=== PATIENT | female | born 1940 | race Caucasian/White ===

== ENCOUNTER → 2018-02-13 10:16 | Outpatient (CLI) | payer MEDICARE, SELFPAY ==
--- NOTE | 2018-02-13 | DI.MG.S_ITS ---
BILATERAL DIGITAL SCREENING MAMMOGRAM 3D/2D WITH CAD: 02/13/2018 CLINICAL: Routine screening. Comparison is made to exams dated: 01/11/2016 mammogram, 09/29/2014 mammogram, and 06/03/2013 mammogram - [facility]. The tissue of both breasts is heterogeneously dense. This may lower the sensitivity of mammography. Current study was also evaluated with a Computer Aided Detection (CAD) system. No significant masses, calcifications, or other findings are seen in either breast. There has been no significant interval change. IMPRESSION: NEGATIVE There is no mammographic evidence of malignancy. A 1 year screening mammogram is recommended. This exam was interpreted at Station ID: [id number]. NOTE: For mammograms, a report in lay terms will be sent to the patient. Approximately 15% of breast malignancies will not be visualized mammographically. In the management of a palpable breast mass, a negative mammogram must not discourage biopsy of a clinically suspicious lesion. Electronically Signed By: Rosario chaudhry/tomás:02/13/2018 10:46:26 letter sent: Normal Exam ACR BI-RADS Category 1: Negative 3341F
== END ==
PROVIDERS: PCP Internal Medicine; Visit Provider Internal Medicine
DX: Z12.31 Encounter for screening mammogram for malignant neoplasm of breast (principal)
CPT/HCPCS: 77063; 77067

== ENCOUNTER → 2018-05-09 14:59 | Outpatient (CLI) | payer MEDICARE, SELFPAY ==
--- NOTE | 2018-05-09 | DI.RAD.S_ITS ---
PROCEDURE: XR WRIST RT MIN 3V INDICATIONS: pain in right wrist after fall yesterday TECHNIQUE: 4 views of the wrist were acquired. COMPARISON: None. FINDINGS: Bones: No fractures or dislocations, but there is moderately severe degenerative change at the base of the first metacarpal and to a lesser degree at the interface between the distal scaphoid and the base of the trapezium. No suspicious bony lesions. Scaphoid view: No trauma to the scaphoid is found. Soft tissues: No suspicious soft tissue calcifications. IMPRESSION: No fracture or traumatic subluxation is seen but there is moderately severe degenerative osteoarthritic change at the base of the first metacarpal as it articulates against the trapezium and at the scaphoid-trapezium articulation. Dictated by: Wallace Olsen M.D. on 05/09/2018 at 16:27 Approved by: Wallace Olsen M.D. on 05/09/2018 at 16:28
== END ==
PROVIDERS: PCP Physician Assistant; Visit Provider Internal Medicine
DX: M25.531 Pain in right wrist (principal)
CPT/HCPCS: 73110

== ENCOUNTER → 2018-05-22 13:04 | Outpatient (CLI) | payer MEDICARE, SELFPAY ==
--- NOTE | 2018-05-22 14:40 | DIET.PN ---
Met for initial nutrition consultation. Pt reports she has been on many different kinds of diets. In past, fasted an did cleansing diets for 5 days at time to control wt. Admits the wt came back. Has been on a vegan diet but couldn't keep it up. As she ages is finding it more and more difficult to lose wt, though did lose 2# in last 2 weeks by entirely cutting out sugar. Most recently has followed paleo/keto style diets. But not strictly. Isn't sure keto feels right. Usual intake includes 2 meals daily and a snack, though less snacking lately in effort to lose wt and with cutting out sugar. Eat all organic foods; lots of fresh produce, minimal processed foods. DX: overweight HT: 62 WT per pt: 137# HIGHEST WT: 141# BMI: 25 PHYSICAL ACTIVITY: Walks dog ([employer] feng) daily for 30-40 min, but doesn't walk fast; hikes 2-3 times weekly for 1-2 hr; yoga 2/wk ASSESSMENT: Elderly woman concerned with wt gain, especially in abdominal area. Is active and eats healthy diet w/few extras x last 2 weeks. Is mildly overweight, but mostly has probably lost muscle with aging. Appears to jump on board with latest fad diets. INTERVENTION: Provided education on wt loss w/aging and recommendations for physical activity. Current recs are to get 1 hour of moderate exercise daily after the age of 50yr to lose wt. Discussed decreasing metabolism with age and it's effect on wt control and the decreased need for energy nutrients (carbohydrates); excess fat. Discussed healthful fats and their metabolism. Provided ed on healthy plate model for portioning PLAN/GOAL: Increase exercise to 1 hour 5-6 times daily, moderate pace Continue to cut out sugar.
== END ==
PROVIDERS: PCP Physician Assistant; Visit Provider Physician Assistant
DX: E66.3 Overweight (principal)
CPT/HCPCS: 97802

== ENCOUNTER → 2019-03-19 09:21 | Outpatient (CLI) | payer MEDICARE, SELFPAY ==
--- NOTE | 2019-03-19 | DI.MG.S_ITS ---
BILATERAL DIGITAL SCREENING MAMMOGRAM 3D/2D WITH CAD: 03/19/2019 CLINICAL: Routine screening. Comparison is made to exams dated: 02/13/2018 mammogram, 01/11/2016 mammogram, and 09/29/2014 mammogram - [facility]. The tissue of both breasts is heterogeneously dense. This may lower the sensitivity of mammography. Current study was also evaluated with a Computer Aided Detection (CAD) system. No significant masses, calcifications, or other findings are seen in either breast. There has been no significant interval change. IMPRESSION: NEGATIVE There is no mammographic evidence of malignancy. A 1 year screening mammogram is recommended. This exam was interpreted at Station ID: [id number]. NOTE: For mammograms, a report in lay terms will be sent to the patient. Approximately 15% of breast malignancies will not be visualized mammographically. In the management of a palpable breast mass, a negative mammogram must not discourage biopsy of a clinically suspicious lesion. Electronically Signed By: Rosario chaudhry/tomás:03/19/2019 11:53:14 letter sent: Normal Exam ACR BI-RADS Category 1: Negative 3341F
== END ==
PROVIDERS: PCP Internal Medicine; Visit Provider Internal Medicine
DX: Z12.31 Encounter for screening mammogram for malignant neoplasm of breast (principal)
CPT/HCPCS: 77063; 77067

== ENCOUNTER → 2019-04-09 10:22 | Outpatient (CLI) | payer MEDICARE, SELFPAY ==
[2019-04-09 12:01] LABS: Alanine Aminotransferase 21 IU/L (9-52); Aspartate Aminotransferase 26 IU/L (14-36); Cholesterol 203 mg/dL (140-199); HDL Cholesterol 86 mg/dL (40-60); LDL Cholesterol Calculated 106 mg/dL (<100); Triglycerides 57 mg/dL (35-150)
== END ==
PROVIDERS: PCP Internal Medicine; Visit Provider Internal Medicine
DX: E78.00 Pure hypercholesterolemia, unspecified (principal)
CPT/HCPCS: 36415; 80061; 84450; 84460

== ENCOUNTER → 2019-08-06 14:45 | Outpatient (CLI) | payer MEDICARE, SELFPAY ==
--- NOTE | 2019-08-06 | DI.RAD.S_ITS ---
PROCEDURE: XR HAND LT MIN 3V INDICATIONS: LT HAND THIRD FINGER TECHNIQUE: 3 views of the hand(s) acquired. COMPARISON: None. FINDINGS: Bones: No fractures or dislocations. Carpal bones are normally aligned. No suspicious bony lesions. Diffuse carpal and interphalangeal joint degeneration. First CMC and triscaphe joint degeneration presumed cystic change projecting in the lunate. No marginal lucencies to suggest erosions. Soft tissues: No suspicious soft tissue calcifications. IMPRESSION: Diffuse left hand osteoarthritis. No definite marginal lucencies. Dictated by: Asael Dallas M.D. on 08/06/2019 at 17:12 Approved by: Asael Dallas M.D. on 08/06/2019 at 17:14
== END ==
PROVIDERS: PCP Internal Medicine; Visit Provider Internal Medicine
DX: M79.642 Pain in left hand (principal); M18.12 Unilateral primary osteoarthritis of first carpometacarpal joint, left hand; M19.042 Primary osteoarthritis, left hand
CPT/HCPCS: 73130

== ENCOUNTER → 2020-03-03 12:36 | Outpatient (CLI) | payer MEDICARE, SELFPAY ==
[2020-03-03 14:25] LABS: Alanine Aminotransferase 23 IU/L (<35); Aspartate Aminotransferase 32 IU/L (14-36); Cholesterol 190 mg/dL (140-199); HDL Cholesterol 70 mg/dL (40-60); LDL Cholesterol Calculated 87 mg/dL (<100); Triglycerides 166 mg/dL (35-150)
== END ==
PROVIDERS: PCP Internal Medicine; Referring Provider Internal Medicine; Visit Provider Internal Medicine
DX: E78.00 Pure hypercholesterolemia, unspecified (principal)
CPT/HCPCS: 36415; 80061; 84450; 84460

== ENCOUNTER → 2020-04-05 10:45 | Outpatient (CLI) | payer MEDICARE, SELFPAY ==
[2020-04-08 12:12] LABS: COVID19 Sendout Not Detected (Not Detected)
== END ==
PROVIDERS: PCP Internal Medicine; Visit Provider Physician Assistant
DX: Z01.818 Encounter for other preprocedural examination (principal)
CPT/HCPCS: 87635

== ENCOUNTER → 2020-04-08 09:51 | Outpatient (CLI) | payer MEDICARE, SELFPAY ==
[2020-04-08 10:59] LABS: COVID19 -Nasal RAPID Negative (Negative)
== END ==
PROVIDERS: PCP Internal Medicine; Visit Provider Physician Assistant
DX: Z01.812 Encounter for preprocedural laboratory examination (principal)
CPT/HCPCS: 87635

== ENCOUNTER 2020-04-08 10:29 | Day surgery (SDC) | payer MEDICARE, SELFPAY ==
--- NOTE | 2020-04-08 | PATH_ITS ---
[facility] Accession Number: [id number] . 01 Material submitted: . PART A: colon - COLON MASS AT 50CM 55CM PART B: colon - COLON POLYP AT 40CM . 02 Diagnosis: A. Colon, Mass at 50 cm, Biopsy: Multiple fragments of sessile serrated adenoma. . B. Colon, Polyp at 40 cm, Biopsy: Sessile serrated adenoma. MRV 04/09/2020 1410 Local . 02 Electronically signed: . Negin Berkowitz MD, Pathologist NPI- [id number] . 01 Gross description: . Part A: COLON MASS AT 50CM 55CM: Received in formalin are multiple fragment(s) of hayes, soft tissue measuring 2.5 x 0.7 x 0.3 cm in aggregate submitted entirely in 1 cassette(s) Part B: COLON POLYP AT 40CM: Received in formalin is 1 fragment(s) of hayes, soft tissue measuring 0.7 x 0.7 x 0.4 cm which is inked, trisected and submitted entirely in 1 cassette(s) /QBJ 04/09/2020 0201 Local . 02 Pathologist provided ICD-10: D12.6 . 02 CPT . 417002, 081697 Performed at: 01 [facility] [address], [place], [place] [id number] MD Kvng Vazquez MD Phone: [phone] Performed at: 02 [facility] [address] [place], [place] [id number] MD Negin Berkowitz MD Phone: [phone]
[2020-04-08 10:39] VITALS: BP 132/81; PULSE 102; RESP 16; TEMP 37.2; O2SAT 97; BMI 25.7
[2020-04-08] MEDS: SODIUM CHLORIDE 0.9% 1,000 ML 84 ML IV (10:39)
--- NOTE | 2020-04-08 12:32 | PM.HP.1 ---
History of Present Illness History of Present Illness Date Patient Seen: 04/08/20 Time Patient Seen: 12:32 Chief complaint: [id number] Narrative: Cologuard positive Patient History Medical History (Updated 09/03/19 @ 20:54 by Cindy Brian) Depression (Chronic ~1984) Herpes (Inactive ~1979) Substance abuse (Chronic ~1984) Surgical History (Updated 09/03/19 @ 20:54 by Cindy Brian) Anesthesia (Resolved) History of ankle surgery (Resolved ~1996) History of cataract removal with insertion of prosthetic lens (Resolved ~2005) Retinal detachment (Resolved ~2001) Family & Social History Family History (Updated 09/03/19 @ 20:56 by Cindy Brian) Father No problems noted. Mother History of heart disease COPD (chronic obstructive pulmonary disease) Grandfather No problems noted. Grandmother History of heart disease Social History: household members other Tobacco & Substance use: Smoking Status Never smoker alcohol intake never Substance Use Type does not use Meds Home Medications and Allergies Home Medications Medication Instructions Recorded Confirmed Type OMEGA-3 FATTY ACIDS (FISH OIL) 500 mg PO #0 06/14/16 History atorvastatin [Lipitor] 10 mg PO HS #30 tab 06/14/16 04/08/20 History cholecalciferol (vitamin D3) 1,000 unit PO QDAY #0 tab 06/14/16 04/08/20 History [Vitamin D3] Allergies Allergy/AdvReac Type Severity Reaction Status Date / Time amoxicillin [AMOXICILLIN] Allergy Unknown Verified 04/08/20 10:31 Exam Vital Signs (past 8 hours): - 04/08/20 10:39 Temperature 98.9 F Pulse Rate 102 H Respiratory Rate 16 Blood Pressure 132/81 Pulse Oximetry 97 Oxygen Delivery Method Room Air Narrative Exam Narrative: Oropharynx free of lesions Chest clear to auscultation percussion Cardiac exam reveals no S3 or murmur Assessment & Plan Assessment & Plan narrative: Cologuard positive, need for colonoscopy. Risks, benefits, alternatives have been explained.
--- NOTE | 2020-04-08 12:33 | PM.OP.ENDO ---
Operative Date/Time/Diagnoses Date of procedure: 04/08/20 Pre-op diagnosis: See indication and findings Procedure & Clinicians Study performed: Colonoscopy Same procedure as scheduled: Yes Indications: Cologuard positive Surgeon: Clifford Goldstein Procedure Notes Procedure in detail: After informed consent was obtained the patient was placed in the left lateral decubitus position. The video colonoscope was introduced the rectum slowly advanced to the cecum. On slow withdrawal mucosa was carefully examined. Preparation was good. The scope was removed. The patient tolerated procedure well. Blood loss none Complications none Sedation Total sedation 44 minutes Fentany 100 micro g Versed 8 mg IV titration Findings One. Extensive sigmoid diverticulosis 2. 12 mm semi sessile polyp at 40 cm hot snared and removed completely 3. 3 mm rectal polyp unable to be relocated for removal. 4. Enlarged fold appearing neoplastic with some nodularity to it but very soft. This was at least 40% of the circumference. The area was injected with spot and raised and then using a small hot snare resected in piecemeal. Two areas did not get good resection. The most raised of the use I biopsied several times with a [employer]dinmbo biopsy forceps. We also treated the area with APC at a setting of 20 w and 0.8 L. Good coverage was obtained. See photographs. It is unclear whether Ms. Bonilla's large polypoid fold has any advanced cellular characteristics. We will merely await pathology. If there is any question she should have colonic resection but if it all appears benign we should recheck in 3-6 months with further APC to take care of any satellite lesions left behind.
[2020-04-08] MEDS: fentaNYL 250 MCG/5 ML INJ IV (12:41)
[2020-04-08] MEDS: MIDAZOLAM 5 MG/5 ML VIAL IV (13:04)
[2020-04-08 13:32] VITALS: BP 115/59; PULSE 73; RESP 15; TEMP 35.9; O2SAT 93
[2020-04-08 13:36] VITALS: BP 112/56; PULSE 70; RESP 13; TEMP 35.5; O2SAT 91
[2020-04-08 13:41] VITALS: BP 110/60; PULSE 77; RESP 16; TEMP 35.9; O2SAT 92
[2020-04-08 13:48] VITALS: BP 143/70; PULSE 73; RESP 18; TEMP 36.7; O2SAT 97
[2020-04-08 13:59] VITALS: BP 135/73; PULSE 69; RESP 16; TEMP 36.2; O2SAT 96
== END 2020-04-08 14:20 | disposition home or self-care (01) ==
PROVIDERS: PCP Internal Medicine; Referring Provider Internal Medicine Gastroenterology; Visit Provider Internal Medicine Gastroenterology
PROC: 0DJD8ZZ Inspection of Lower Intestinal Tract, Via Natural or Artificial Opening Endoscopic (ICD-10-PCS; CPT 45378; principal; 2020-04-08 12:30)
DX: K57.30 Diverticulosis of large intestine without perforation or abscess without bleeding (principal); K62.1 Rectal polyp; D12.6 Benign neoplasm of colon, unspecified
CPT/HCPCS: 45385; 45380; J2250; J3010

== ENCOUNTER → 2020-10-05 14:27 | Outpatient (CLI) | payer MEDICARE, SELFPAY ==
[2020-10-05 15:39] LABS: COVID19 -Nasal RAPID Negative (Negative)
== END ==
PROVIDERS: PCP Internal Medicine; Visit Provider Physician Assistant
DX: Z01.812 Encounter for preprocedural laboratory examination (principal); Z20.822 Contact with and (suspected) exposure to COVID-19
CPT/HCPCS: 87635; C9803

== ENCOUNTER 2020-10-07 08:14 | Day surgery (SDC) | payer MEDICARE, SELFPAY ==
[2020-10-07] VITALS (8 sets, daily range): BP systolic 105–143; BP diastolic 52–87; PULSE 73–99; RESP 10–16; TEMP 36.1–36.6; O2SAT 92–97; BMI 24.7
[2020-10-07] MEDS: SODIUM CHLORIDE 0.9% 1,000 ML 150 ML IV ×2 (08:45→10:05)
--- NOTE | 2020-10-07 09:01 | PM.HP.1 ---
History of Present Illness History of Present Illness Date Patient Seen: 10/07/20 Chief complaint: SDC Narrative: Six month follow-up from removal of large sessile serrated adenoma. Patient History Medical History (Updated 09/03/19 @ 20:54 by Cindy Brian) Depression (~1984) Herpes (~1979) Substance abuse (~1984) Surgical History (Updated 09/03/19 @ 20:54 by Cindy Brian) Anesthesia History of ankle surgery (~1996) History of cataract removal with insertion of prosthetic lens (~2005) Retinal detachment (~2001) Family & Social History Family History (Updated 09/03/19 @ 20:56 by Cindy Brian) Father No problems noted. Mother History of heart disease COPD (chronic obstructive pulmonary disease) Grandfather No problems noted. Grandmother History of heart disease Social History: household members other Tobacco & Substance use: Smoking Status Never smoker alcohol intake never Substance Use Type does not use Meds Home Medications and Allergies Home Medications Medication Instructions Recorded Confirmed Type OMEGA-3 FATTY ACIDS (FISH OIL) 500 mg PO DAILY #0 06/14/16 10/07/20 History atorvastatin [Lipitor] 10 mg PO HS #30 tab 06/14/16 10/07/20 History cholecalciferol (vitamin D3) 1,000 unit PO QDAY #0 tab 06/14/16 10/07/20 History [Vitamin D3] Allergies Allergy/AdvReac Type Severity Reaction Status Date / Time amoxicillin [AMOXICILLIN] Allergy Unknown Rash Verified 10/07/20 08:42 Exam Vital Signs (past 8 hours): - 10/07/20 08:44 Temperature 98 F Pulse Rate 99 H Respiratory Rate 16 Blood Pressure 143/87 H Pulse Oximetry 96 Oxygen Delivery Method Room Air Narrative Exam Narrative: Oropharynx free of lesions Chest clear to auscultation percussion Cardiac exam reveals no S3 or murmur Assessment & Plan Assessment & Plan narrative: Previous removal of 2 large sessile serrated adenomas the largest at 50 cm. Need to check whether site needs touch up with APC. Risks benefits and alternatives been explained.
--- NOTE | 2020-10-07 09:02 | PM.OP.ENDO ---
Operative Date/Time/Diagnoses Date of procedure: 10/07/20 Pre-op diagnosis: See indication and findings Procedure & Clinicians Study performed: Colonoscopy Same procedure as scheduled: Yes Indications: Large sessile serrated adenoma follow-up Surgeon: Clifford Goldstein Procedure Notes Procedure in detail: After informed consent was obtained the patient was placed in left lateral decubitus position. The video scope was placed into the rectum slowly advanced to cecum. On slow withdrawal mucosa was carefully examined. Preparation was good. Scope was removed. The patient tolerated procedure well. Blood loss none Complications none Sedation Total sedation time 27 minutes Versed 7 mg fentanyl 100 micro g IV titration Findings 1. Extensive sigmoid and left-sided diverticulosis 2. Tattooed sites seen at 50-55 cm. No residual adenomatous tissue obvious. 3. Otherwise negative colonoscopy to cecum Patient should have follow-up colonoscopy in 3 years.
[2020-10-07] MEDS: fentaNYL 250 MCG/5 ML INJ IV (09:05)
[2020-10-07] MEDS: MIDAZOLAM 5 MG/5 ML VIAL IV (09:20)
--- NOTE | 2020-10-07 10:47 | SUR.PHASEII ---
Tolerating PO intake well, oriented and pleasant, complimentary of staff being friendly. VSS. Passing flatus. comfortable.
== END 2020-10-07 10:48 | disposition home or self-care (01) ==
PROVIDERS: PCP Internal Medicine; Referring Provider Internal Medicine Gastroenterology; Visit Provider Internal Medicine Gastroenterology
PROC: 0DJD8ZZ Inspection of Lower Intestinal Tract, Via Natural or Artificial Opening Endoscopic (ICD-10-PCS; CPT 45378; principal; 2020-10-07 09:00)
DX: Z09 Encounter for follow-up examination after completed treatment for conditions other than malignant neoplasm (principal); Z86.010 Personal history of colon polyps; K57.30 Diverticulosis of large intestine without perforation or abscess without bleeding
CPT/HCPCS: 45378; J2250; J3010

== ENCOUNTER → 2020-12-22 09:45 | Outpatient (CLI) | payer MEDICARE, SELFPAY ==
--- NOTE | 2020-12-22 | DI.MG.S_ITS ---
BILATERAL DIGITAL SCREENING MAMMOGRAM 3D/2D WITH CAD: 12/22/2020 CLINICAL: Routine screening. Comparison is made to exams dated: 03/19/2019 mammogram, 02/13/2018 mammogram, and 01/11/2016 mammogram - [facility]. The tissue of both breasts is heterogeneously dense. This may lower the sensitivity of mammography. Current study was also evaluated with a Computer Aided Detection (CAD) system. There are benign calcifications in both breasts. No significant masses, calcifications, or other findings are seen in either breast. There has been no significant interval change. IMPRESSION: BENIGN There is no mammographic evidence of malignancy. A 1 year screening mammogram is recommended. This exam was interpreted at Station ID: [id number]. NOTE: For mammograms, a report in lay terms will be sent to the patient. Approximately 15% of breast malignancies will not be visualized mammographically. In the management of a palpable breast mass, a negative mammogram must not discourage biopsy of a clinically suspicious lesion. Electronically Signed By: Terry Restrepo acr/tomás:12/22/2020 10:49:07 letter sent: Normal Exam ACR BI-RADS Category 2: Benign Finding(s) 3342F
[2020-12-22 11:27] LABS: Alanine Aminotransferase 25 IU/L (<35); Albumin 4.4 g/dL (3.5-5.0); Albumin Globulin Ratio 1.6 (1.0-2.8); Alkaline Phosphatase 83 U/L (38-126); Aspartate Aminotransferase 33 IU/L (14-36); BUN Creatinine Ratio 26.9 (6-22); Bilirubin Total 0.5 mg/dL (0.2-1.3); Blood Urea Nitrogen 18 mg/dL (7-17); Calcium 9.4 mg/dL (8.4-10.2); Carbon Dioxide 31 mmol/L (22-32); Chloride 101 mmol/L (98-107); Cholesterol 188 mg/dL (140-199); Estimated Glomerular Filt Rate > 60.0 mL/min (>60); Globulin 2.7 g/dL (1.7-4.1); Glucose 99 mg/dL (80-110); HDL Cholesterol 80 mg/dL (40-60); HEMOLYSIS < 15 (0-50); LDL Cholesterol Calculated 97 mg/dL (<100); Potassium 4.1 mmol/L (3.4-5.1); Sodium 137 mmol/L (137-145); Total Protein 7.1 g/dL (6.3-8.2); Triglycerides 53 mg/dL (35-150)
== END ==
PROVIDERS: PCP Internal Medicine; Referring Provider Internal Medicine; Visit Provider Internal Medicine
DX: Z12.31 Encounter for screening mammogram for malignant neoplasm of breast (principal); M85.851 Other specified disorders of bone density and structure, right thigh; Z78.0 Asymptomatic menopausal state; Z82.62 Family history of osteoporosis; Z87.891 Personal history of nicotine dependence
CPT/HCPCS: 77063; 77067; 77080; 80053; 80061

== ENCOUNTER → 2021-01-08 14:18 | Outpatient (ROUT) | payer MEDICARE, SELFPAY ==
[2021-01-08 14:26] LABS: Hematocrit 39.9 % (36-46); Hemoglobin 13.1 g/dL (12.0-16.0); Mean Corpuscular HGB Conc 32.7 % (30-36); Mean Corpuscular Hemoglobin 31.6 PG (26-34); Mean Corpuscular Volume 96.4 fL (80-100); Platelet Count 347 X10^3/uL (150-400); Red Blood Cell Count 4.14 X10^6/uL (4.0-5.2); Red Cell Distribution Width 12.9 % (11.6-14.8); White Blood Cell Count 9.3 X10^3/uL (4.5-11.0)
[2021-01-08 15:05] LABS: TSH w/ Reflex to FT4 1.32 uIU/mL (0.47-4.68)
[2021-01-08 15:24] LABS: Vitamin B12 368 pg/mL (239-931)
== END ==
PROVIDERS: PCP Internal Medicine; Visit Provider Internal Medicine
DX: R53.82 Chronic fatigue, unspecified (principal)
CPT/HCPCS: 82607; 84443; 85027

== ENCOUNTER → 2022-04-26 13:32 | Outpatient (CLI) | payer MEDICARE, SELFPAY ==
--- NOTE | 2022-04-26 | DI.MG.S_ITS ---
BILATERAL DIGITAL SCREENING MAMMOGRAM 3D/2D WITH CAD: 04/26/2022 CLINICAL: Routine screening. Comparison is made to exams dated: 12/22/2020 mammogram, 03/19/2019 mammogram, 02/13/2018 mammogram, and 01/11/2016 mammogram - [facility]. The tissue of both breasts is heterogeneously dense. This may lower the sensitivity of mammography. Current study was also evaluated with a Computer Aided Detection (CAD) system. There are benign calcifications in both breasts. No significant masses, calcifications, or other findings are seen in either breast. There has been no significant interval change. IMPRESSION: BENIGN There is no mammographic evidence of malignancy. A 1 year screening mammogram is recommended. Based on the Tyrer Cuzick model (a risk assessment model) the patient's lifetime risk is 2.2% and her 10 year risk is 0.0%. According to the ACR, ACS, and NCCN guidelines, an annual breast MRI exam along with mammogram is recommended if the patient's lifetime risk is 20% or greater. This exam was interpreted at Station ID: [id number]. NOTE: For mammograms, a report in lay terms will be sent to the patient. Approximately 15% of breast malignancies will not be visualized mammographically. In the management of a palpable breast mass, a negative mammogram must not discourage biopsy of a clinically suspicious lesion. Electronically Signed By: Glen benjamin/tomás:04/26/2022 17:26:32 letter sent: Normal Exam ACR BI-RADS Category 2: Benign Finding(s) 3342F
== END ==
PROVIDERS: PCP Internal Medicine; Referring Provider Internal Medicine; Visit Provider Internal Medicine
DX: Z12.31 Encounter for screening mammogram for malignant neoplasm of breast (principal)
CPT/HCPCS: 77063; 77067

== ENCOUNTER → 2022-08-31 12:59 | Outpatient (CLI) | payer MEDICARE, SELFPAY ==
--- NOTE | 2022-08-31 13:05 | DI.RAD.S_ITS ---
PROCEDURE: XR HIP W PEL IF DONE LT 2V INDICATIONS: Left hip pain TECHNIQUE: 2 views of the hip were acquired. COMPARISON: None. FINDINGS: Bones: Mild hip joint space narrowing and osteophytosis. No fractures or dislocations. No suspicious bony lesions. The visualized pelvic ring appears intact. Soft tissues: No suspicious soft tissue calcifications or masses. IMPRESSION: Blastic lesion in the left femoral neck is unknown clinical significance. This likely represents a benign fibro-osseous lesion of bone however a blastic metastatic lesion cannot be strictly excluded. Unless prior outside images can document long-term stability, MRI of the left hip recommended. Mild left hip osteoarthritis. Dictated by: Luis Eduardo Grove M.D. on 08/31/2022 at 13:24 Approved by: Luis Eduardo Grove M.D. on 08/31/2022 at 13:25
== END ==
PROVIDERS: PCP Internal Medicine; Referring Provider Internal Medicine; Visit Provider Internal Medicine
DX: M25.552 Pain in left hip (principal); M89.9 Disorder of bone, unspecified; M16.12 Unilateral primary osteoarthritis, left hip
CPT/HCPCS: 73502

== ENCOUNTER → 2022-09-02 15:00 | Outpatient (CLI) | payer MEDICARE, SELFPAY ==
--- NOTE | 2022-09-02 | DI.MRI.S_ITS ---
PROCEDURE: MR PELIS WO/W CON INDICATIONS: FOLLOW UP PER XRAY REPORT TECHNIQUE: Noncontrast coronal T1 spin echo and STIR, sagittal T1 spin echo with fat saturation and STIR, axial T1 spin echo and T2 fast spin echo with fat saturation, axial T1 FLASH. After the administration of contrast, axial/sagittal/coronal T1 spin echo with fat saturation through the pelvis. Diffusion-weighted imaging was also performed. COMPARISON: [facility], , XR HIP W PEL IF DONE LT 2V, 08/31/2022, 13:19. FINDINGS: Image quality: Excellent. Bones: A small intraosseous lesion is seen in the proximal left femoral neck that is markedly hypoattenuating on all sequences without surrounding edema or postcontrast enhancement, and corresponds to the sclerotic lesion seen on radiographs from 08/31/2022. Findings are most compatible with a benign bone island. No suspicious marrow replacing mass or abnormal intraosseous enhancement is seen within the pelvis. An additional benign bone island is seen in the right greater trochanter. Mild degenerative changes are seen in the pubic symphysis and bilateral sacroiliac joints. Degenerative changes also seen in the spine with disc desiccation and facet hypertrophy. Lkgn-lg-mypkploq degenerative changes are seen in the hips bilaterally with partial-thickness cartilage irregularity and marginal osteophyte formation as well as subchondral cystic changes at the left hip. Soft tissues: No suspicious enhancing soft tissue mass. The musculature surrounding the pelvis is normal in bulk. Mild distal gluteus medius and minimus tendinosis bilaterally. Proximal hamstring tendons are intact. Iliopsoas tendons are intact. Proximal iliotibial bands and rectus femoris muscles are intact. No signs of ischial femoral impingement. Bladder appears normal. Uterus is normal in size for age. Ovaries are not well visualized, but no suspicious adnexal mass is seen. Multiple diverticula are seen in the colon without signs of acute diverticulitis. No bulky lymphadenopathy in the pelvis. IMPRESSION: 1. Benign bone island in the left femoral neck corresponds to the sclerotic lesion seen on prior left hip radiographs. Additional benign bone island is seen in the right greater trochanter. No suspicious marrow replacing mass or abnormal osseous enhancement. 2. Ihfe-ck-zacwamvl degenerative changes in the hips bilaterally. Degenerative changes also seen in the pubic symphysis, sacroiliac joints, and included lumbar spine. 3. Mild distal gluteus medius and minimus tendinosis bilaterally. 4. Colonic diverticulosis. Approved by: Bony Pulido M.D. on 09/02/2022 at 20:42
== END ==
PROVIDERS: PCP Internal Medicine; Referring Provider Internal Medicine; Visit Provider Internal Medicine
DX: M25.552 Pain in left hip (principal); M89.9 Disorder of bone, unspecified; K57.90 Diverticulosis of intestine, part unspecified, without perforation or abscess without bleeding
CPT/HCPCS: 72197; A9579

== ENCOUNTER → 2023-12-07 14:06 | Outpatient (CLI) | payer MEDICARE, SELFPAY ==
--- NOTE | 2023-12-07 | DI.MG.S_ITS ---
BILATERAL DIGITAL SCREENING MAMMOGRAM 3D/2D WITH CAD: 12/07/2023 CLINICAL: Routine screening. Comparison is made to exams dated: 04/26/2022 mammogram, 12/22/2020 mammogram, and 03/19/2019 mammogram - [facility]. Both breasts are heterogeneously dense, which may obscure small masses (category c / 51-75% glandular tissue). Current study was also evaluated with a Computer Aided Detection (CAD) system. No significant masses, calcifications, or other findings are seen in either breast. There has been no significant interval change. IMPRESSION: NEGATIVE There is no mammographic evidence of malignancy. A 1 year screening mammogram is recommended. Based on the Tyrer Cuzick model (a risk assessment model) the patient's lifetime risk is 1.0% and her 10 year risk is 0.0%. According to the ACR, ACS, and NCCN guidelines, an annual breast MRI exam along with mammogram is recommended if the patient's lifetime risk is 20% or greater. This exam was interpreted at Station ID: [id number]. NOTE: For mammograms, a report in lay terms will be sent to the patient. Approximately 15% of breast malignancies will not be visualized mammographically. In the management of a palpable breast mass, a negative mammogram must not discourage biopsy of a clinically suspicious lesion. Electronically Signed By: Pat Nicholas M.D., PH.D eb/tomás:12/07/2023 14:57:29 letter sent: Normal Exam ACR BI-RADS Category 1: Negative 3341F
== END ==
PROVIDERS: PCP Internal Medicine; Referring Provider Internal Medicine; Visit Provider Internal Medicine
DX: Z12.31 Encounter for screening mammogram for malignant neoplasm of breast (principal); R92.333 Mammographic heterogeneous density, bilateral breasts
CPT/HCPCS: 77063; 77067

== ENCOUNTER 2024-02-28 09:24 | Day surgery (SDC) | payer MEDICARE, SELFPAY ==
--- NOTE | 2024-02-28 | PATH_ITS ---
[facility] Accession Number: [id number] No. of containers..01 Tissue . 01 Material submitted: . colon - COLON, 50cm, POLYP . 01 Diagnosis: COLON, 50cm, POLYP: Sessile serrated adenoma. [facility] 03/05/2024 1433 Local . 01 Electronically signed: . Kvng Vazquez MD, Pathologist NPI- [id number] . 01 Gross description: . Received in formalin with two patient identifiers and 50 cm polyp, is a single hayes soft tissue fragment, 0.5 cm in greatest dimension. Submitted entirely in A1. ([id number]) /MRV 03/05/2024 1433 Local . 01 Pathologist provided ICD-10: D12.6 . 01 CPT . 219029 Specimen Comment: A courtesy copy of this report has been sent to [phone] Performed at: [address] [id number] MD Kvng Vazquez MD Phone: [phone]
[2024-02-28 09:44] VITALS: BP 114/64; PULSE 70; RESP 18; TEMP 36.3; O2SAT 96
[2024-02-28] MEDS: LACTATED RINGERS 1,000 ML 42 ML IV ×2 (09:57→11:01)
--- NOTE | 2024-02-28 09:58 | PM.OP.COLON ---
Operative Date/Time/Diagnoses Date of procedure: 02/28/24 Pre-op diagnosis: See indication and findings Procedure & Clinicians Study performed: Colonoscopy Indications: History of large colon polyps due for follow-up colonoscopy but patient elected to do Cologuard 1st. This was positive Surgeon: Clifford Goldstein Procedure Notes Procedure in detail: After informed consent was obtained the patient was placed in left lateral decubitus position. The video colonoscope was placed in the rectum slowly advanced to cecum. Preparation was good. On slow withdrawal mucosa was carefully examined. The scope was removed. The patient tolerated procedure well. Blood loss none Complications none Sedation mac Findings 1. Extensive diverticulosis, pancolonic 2. Previous tattoo in the mid to distal transverse colon 3. Very difficult to see 1.2 cm polyp behind a fold and curved in the descending colon. Very difficult to visualize and 8-10 passes through the area had to be accomplished to localize it. Finally, spot was injected to tattoo but also to raise up the back end of it and be able to visualize it. Using hot snare technique the polyp was removed though I believe that the snare was malfunctioning so this was practically cold. Will be in touch regarding pathology. She may need follow-up colonoscopy to ensure complete removal.
--- NOTE | 2024-02-28 09:59 | PM.HP.1 ---
History of Present Illness History of Present Illness Date Patient Seen: 02/28/24 Chief complaint: Colonoscopy Narrative: Cologuard positivity in woman with a history of large and multiple polyps. [facility] Medical History Depression (~1984) Herpes (~1979) Substance abuse (~1984) Surgical History Anesthesia History of ankle surgery (~1996) History of cataract removal with insertion of prosthetic lens (~2005) Retinal detachment (~2001) Family History Father No problems noted. Mother History of heart disease COPD (chronic obstructive pulmonary disease) Grandfather No problems noted. Grandmother History of heart disease Social History household members: other Smoking Status: Former smoker alcohol intake: never Meds Home Medications and Allergies Home Medications Medication Instructions Recorded Confirmed Type OMEGA-3 FATTY ACIDS (FISH OIL) 500 mg PO DAILY ##0 06/14/16 02/28/24 History atorvastatin 10 mg tablet (Lipitor) 10 mg PO HS #30 tabs 06/14/16 02/28/24 History cholecalciferol (vitamin D3) 25 1,000 unit PO QDAY #0 tabs 06/14/16 02/28/24 History mcg (1,000 unit) tablet (Vitamin D3) mupirocin 2 % topical ointment 1 applic topical BID #30 grams 12/19/20 04/18/23 Rx escitalopram oxalate 20 mg tablet 20 mg PO DAILY 02/28/24 02/28/24 History estradiol 0.01% (0.1 mg/gram) vaginal WEEKLY 02/28/24 History vaginal cream olmesartan 5 mg tablet 5 mg PO DAILY 02/28/24 02/28/24 History Allergies Allergy/AdvReac Type Severity Reaction Status Date / Time amoxicillin [AMOXICILLIN] Allergy Unknown Rash Verified 04/18/23 16:05 Exam Vital Signs (past 8 hours): - 02/28/24 09:44 Temperature 97.4 F L Pulse Rate 70 Respiratory Rate 18 Blood Pressure 114/64 Pulse Oximetry 96 Oxygen Delivery Method Room Air Oxygen Delivery Method Room Air Narrative Exam Narrative: Oropharynx free of lesions Chest clear to auscultation percussion Cardiac exam reveals no S3 or murmur Assessment & Plan Assessment & Plan narrative: History of multiple and large colon polyps also with Cologuard positivity need for follow-up colonoscopy. Risks, benefits, alternatives have been explained.
[2024-02-28 11:16] VITALS: BP 97/45; PULSE 73; RESP 14; TEMP 36.4; O2SAT 94
[2024-02-28 11:19] VITALS: BP 105/58; PULSE 77; RESP 15; TEMP 36.4; O2SAT 94
[2024-02-28 11:25] VITALS: BP 120/67; PULSE 73; RESP 22; TEMP 36.3; O2SAT 96
[2024-02-28 11:29] VITALS: BP 128/68; PULSE 76; RESP 19; TEMP 36.3; O2SAT 98
== END 2024-02-28 12:13 | disposition home or self-care (01) ==
PROVIDERS: PCP Internal Medicine; Referring Provider Internal Medicine Gastroenterology; Visit Provider Internal Medicine Gastroenterology
PROC: 0DJD8ZZ Inspection of Lower Intestinal Tract, Via Natural or Artificial Opening Endoscopic (ICD-10-PCS; CPT 45378; principal; 2024-02-28 10:30)
DX: Z12.11 Encounter for screening for malignant neoplasm of colon (principal); R19.5 Other fecal abnormalities; K57.30 Diverticulosis of large intestine without perforation or abscess without bleeding; D12.6 Benign neoplasm of colon, unspecified
CPT/HCPCS: 45381; 45385; J2704

== ENCOUNTER → 2024-04-17 10:16 | Outpatient (CLI) | payer MEDICARE, SELFPAY ==
--- NOTE | 2024-04-17 10:17 | DI.RAD.S_ITS ---
PROCEDURE: XR DEXA AXIAL SKELETON INDICATIONS: Asymptomatic menopausal state COMPARISON: [facility], CR, XR DEXA AXIAL SKELETON, 12/22/2020, 10:39. FINDINGS: Lumbar Spine: Bone mineral density 1.040 g/cm2, T score -0.1, prior T-score, 0.3. Left Hip: Bone mineral density is 0.685 g/cm2, T score -2.1. Left Femoral Neck: Bone mineral density is 0.680 g/cm2, T score -1.5. Right Hip: Bone mineral density 0.706 g/cm2, T score -1.9. Right Femoral Neck: Bone mineral density is 0.667 g/cm2, T score -1.6. Fracture Risk Calculation (when applicable): 10-year fracture risk of a major osteoporotic fracture 14% and of a hip fracture 3.8%. (T score greater or equal to -1.0 to: NORMAL) (T score from -1.1 to -2.4: OSTEOPENIA) (T score less than or equal to -2.5: OSTEOPOROSIS) IMPRESSION: Osteopenia. Follow-up guidelines as follows: Osteoporosis: Consider a repeat DEXA and Vertebral Fracture Assessment (VFA) exam in 2 years or sooner if medically necessary, to reassess this patient's status. Osteopenia: Consider a repeat DEXA in 2-3 years to reassess this patient's status, or if there is a new clinical indication. Normal: Consider a repeat DEXA in 5 years or sooner, or if there is a new clinical indication. All treatment decisions require clinical judgment and consideration of individual patient factors, including patient preferences, comorbidities, previous drug use, risk factors not captured in the FRAX model (e.g., frailty, falls, vitamin D deficiency, increased bone turnover, interval significant decline in bone density ) and possible under- or over-estimation of fracture risk by FRAX. In addition, the NOF Guide recommends that FDA-approved medical therapies be considered in postmenopausal women and men age >= 50 years with a: * Hip or vertebral (clinical or morphometric) fracture * T-score of <=-2.5 at the spine or hip * Ten-year fracture probability by FRAX of >= 3% for hip fracture or >=20% for major osteoporotic fracture. People with diagnosed cases of osteoporosis or at high risk for fracture should have regular bone mineral density tests. For patients eligible for Medicare, routine testing is allowed once every 2 years. The testing frequency can be increased to one year for patients who have rapidly progressing disease, those who are receiving or discontinuing medical therapy to restore bone mass, or have additional risk factors. Dictated by: Leroy Salgado M.D. on 04/17/2024 at 16:21 Approved by: Leroy Salgado M.D. on 04/17/2024 at 16:30
== END ==
PROVIDERS: PCP Internal Medicine; Referring Provider Internal Medicine; Visit Provider Internal Medicine
DX: Z78.0 Asymptomatic menopausal state (principal); M85.89 Other specified disorders of bone density and structure, multiple sites
CPT/HCPCS: 77080